=== PATIENT | female | born 2005 | race Caucasian/White ===

== ENCOUNTER 2024-04-11 07:03 | Outpatient (CLI) | payer BC, SELFPAY ==
--- NOTE | ~2024-04-11 | CT_ITS ---
CT of the Abdomen and Pelvis: Indication: Abdominal pain Technique: 2.5 mm axial scans were obtained through the abdomen and pelvis following intravenous adm inistration of 100 cc of Omnipaque 350. Dose reduction technique was used on this scan by utilizing a utomated exposure control and iterative reconstruction technique. The dose-length product (DLP) was 3 05.46 mGy-cm. Findings: Scans through the lung bases are unremarkable. There is a 9 mm hypodense indeterminate lesion in the right hepatic lobe (axial image 32). The spleen , pancreas, gallbladder, adrenals and kidneys are within normal limits. No evidence of aortic aneury sm. No lymphadenopathy. No bowel obstruction or bowel wall thickening. There is no evidence to suggest acute appendicitis. Images through the pelvis were performed. Urinary bladder unremarkable. No adnexal mass seen. No asci bayron. Impression: No acute abnormality. 9 mm hypodense indeterminate lesion right hepatic lobe. Statistically, this is most likely a benign l esion. Consider follow-up MR to further evaluate/characterize this finding. Reviewed, dictated and finalized at [facility]. Impression: No acute abnormality. 9 mm hypodense indeterminate lesion right hepatic lobe. Statistically, this is most likely a benign lesion. Consider follow-up MR to further evaluate/christa isaacs this finding.
== END 2024-04-11 07:04 | disposition home or self-care (01) ==
PROVIDERS: PCP Nurse Practitioner Family; Visit Provider Physician Assistant Medical
DX: M54.9 Dorsalgia, unspecified (principal); M45.9 Ankylosing spondylitis of unspecified sites in spine; R11.10 Vomiting, unspecified; R10.9 Unspecified abdominal pain; K76.9 Liver disease, unspecified
CPT/HCPCS: 74177; Q9967

== ENCOUNTER 2024-04-28 08:24 | Outpatient (CLI) | payer BC, SELFPAY ==
--- NOTE | ~2024-04-28 | MR_ITS ---
EXAMINATION: MR abdomen wo/w con DATE: 04/28/2024 09:38 INDICATION: Liver mass. TECHNIQUE: Magnetic resonance imaging (MRI) of the abdomen was performed without and with 12 mL Multi Aldair intravenous contrast. COMPARISON: CT abdomen and pelvis 04/11/2024 FINDINGS: In the right hepatic lobe, there is a 10 mm mass of increased T2-weighted signal intensity with delay ed contrast enhancement. The gallbladder, spleen, pancreas, adrenal glands, and kidneys are normal. T here are no dilated loops of bowel. IMPRESSION: 1. 10 mm liver mass with delayed contrast enhancement, which may be benign or less likely malignant. Consider abdomen CT with contrast in 6 months. Reviewed, dictated and finalized at [facility]. IMPRESSION: 1. 10 mm liver mass with delayed contrast enhancement, which may be benign or l ess likely malignant. Consider abdomen CT with contrast in 6 months.
== END 2024-04-28 08:25 | disposition home or self-care (01) ==
LOC: ANHIMG 08:30
PROVIDERS: PCP Nurse Practitioner Family; Visit Provider Physician Assistant Medical
DX: R16.0 Hepatomegaly, not elsewhere classified (principal)
CPT/HCPCS: 74183; A9577